=== PATIENT | female | born 1945 | race Caucasian/White ===

== ENCOUNTER 2016-06-16 07:19 | Day surgery (SDC) | payer BC ==
--- NOTE | ~2016-06-16 | EGD ---
EGD REPORT [facility] [address] [place] [address] NAME: BRENT HASKINS : [birth year] STATUS : REG [facility]#: [id number] AGE: 70 ADM/REG DATE : 06/16/16 MR#: [id number] REPORT SERV DATE: 06/16/16 DICTATED BY: PHUC LILLY DATE: 06/16/16 REPORT STATUS : Draft TRANSCRIBED BY: [facility] DATE: 06/16/16 End[facility] Center Patient Name: Brent Haskins Date of : 1945 Attending MD: PHUC LILLY MD Procedure Date No Time: 06/16/2016 Procedure: Colonoscopy Indications: Screening for colorectal malignant neoplasm Referring MD: RODNEY WELLS MD Medicines: as per anesthesia Complications: No immediate complications. Procedure: Pre-Anesthesia Assessment: - ASA Grade Assessment: II - A patient with mild systemic disease. After I obtained informed consent, the scope was passed under direct vision. Throughout the procedure, the patient's blood pressure, pulse, and oxygen saturations were monitored continuously. The PCF [id number] was introduced through the anus and advanced to the cecum, identified by appendiceal orifice and ileocecal valve. The colonoscopy was performed without difficulty. The patient tolerated the procedure. The quality of the bowel preparation was adequate to identify polyps. Findings: The perianal and digital rectal examinations were normal. Internal hemorrhoids were found during endoscopy and were mild. Impression: - Internal hemorrhoids. Recommendation: - Repeat colonoscopy in 10 years for surveillance. Procedure Code(s): --- Professional --- 52411, Colonoscopy, flexible, proximal to splenic flexure; diagnostic, with or without collection of specimen(s) by brushing or washing, with or without colon decompression (separate procedure) Diagnosis Code(s): --- Professional --- K64.8, Other hemorrhoids Z12.11, Encounter for screening for malignant neoplasm of colon CPT copyright 2013 [employer]. All rights reserved. EGD REPORT [facility] [address] [id number] NAME: BRENT HASKINS : [birth year] STATUS : REG [facility]#: [id number] AGE: 70 ADM/REG DATE : 06/16/16 MR#: [id number] REPORT SERV DATE: 06/16/16 DICTATED BY: PHUC LILLY. DATE: 06/16/16 REPORT STATUS : Draft TRANSCRIBED BY: [employer] DATE: 06/16/16 The codes documented in this report are preliminary and upon gas engine operator compressors review may be revised to meet current compliance requirements. PHUC LILLY MD 06/16/2016 9:48 AM This report has been signed electronically. Number of Addenda: 0 Note Initiated On: 06/16/2016 9:15 AM Scope Withdrawal Time 0 hours 9 minutes 55 seconds [id number] [id number]
[~2016-06-16 07:19] MED LIST: GYNODIOL0.5 MG PO; NEXIUM40 PO; OSTEO BI-FLEX1 EACH PO; VITAMIN B-121000 MC1 SL; VITAMIN D31000 UNIT PO
== END 2016-06-16 23:59 | disposition home or self-care (01) ==
LOC: DMU 07:19
PROVIDERS: Internal Medicine Gastroenterology
PROC: 0DJD8ZZ Inspection of Lower Intestinal Tract, Via Natural or Artificial Opening Endoscopic (ICD-10-PCS; principal; 2016-06-16 09:00)
DX: Z12.11 Encounter for screening for malignant neoplasm of colon (principal); K64.8 Other hemorrhoids; Z88.5 Allergy status to narcotic agent; Z88.8 Allergy status to other drugs, medicaments and biological substances; G43.909 Migraine, unspecified, not intractable, without status migrainosus; Z98.890 Other specified postprocedural states; Z90.49 Acquired absence of other specified parts of digestive tract; Z90.710 Acquired absence of both cervix and uterus